=== PATIENT | female | born 1945 | race Caucasian/White ===

== ENCOUNTER 2018-05-16 14:11 | Emergency (ER) | payer MEDICARE, OTHER ==
--- NOTE | 2018-05-16 14:38 | PDOC ---
Rapid Medical Evaluation Time Seen by Provider: 05/16/18 14:34 Medical Evaluation: Allergies Allergy/AdvReac Type Severity Reaction Status Date / Time No Known Allergies Allergy Verified 11/26/12 18:34 05/16/18 14:35 I have performed a brief in-person evaluation of this patient The patient present with a chief complaint of: injury to head on Wednesday. Patient reported that a window fell onto her head on Wednesday, no loss of consciousness but felt lightheaded after. Today with pain in head, neck and all 4 limbs Pertinent physical exam findings: Heent: no hematoma felt, supple neck even and unlabored breathing I have ordered the following: head and neck ct The patient will proceed to the ED for further evaluation. Discharge Disposition - Diagnosis Headache - Referrals - Patient Instructions - Post Discharge Activity
[2018-05-16 14:40] VITALS: BP 164/73; PULSE 67; TEMP 98.1; BMI 27.3
--- NOTE | 2018-05-16 16:38 | PDOC ---
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 Patient reports she was cleaning a window and the corner of the window hit the top of the head weeks ago. Patient report no loss of consciousness. Reported she has not been feeling pain on to 2 days ago when she started having posterior neck pain with headache and tingling sensation in bilateral upper arms. Denies arm weakness. Denies chest pain, shortness of breath, blurry vision, nausea or vomiting. Denies any other symptoms Timing/Duration: reports: 1 week Past History - Past Medical History Allergies/Adverse Reactions: Allergies Allergy/AdvReac Type Severity Reaction Status Date / Time No Known Allergies Allergy Verified 05/16/18 14:41 Home Medications: Ambulatory Orders Aspirin 81 mg PO DAILY 11/26/12 Esomeprazole Mag Trihydrate [Nexium] 40 mg PO DAILY 11/26/12 Levothyroxine [Synthroid] 37.5 mcg PO DAILY 11/26/12 Valsartan [Diovan] 160 mg PO DAILY 11/26/12 Methocarbamol [Robaxin -] 500 mg PO BID PRN #14 tablet 05/16/18 Naproxen 500 mg PO BID PRN #20 tablet 05/16/18 Cardiac Disorders: Yes GI Disorders: Yes (HERNIA) HTN: Yes Thyroid Disease: Yes - Suicide/Smoking/Psychosocial Hx Smoking Status: No Smoking History: Never smoked Have you smoked in the past 12 months: No Number of Cigarettes Smoked Daily: 0 Information on smoking cessation initiated: No Hx Alcohol Use: No Drug/Substance Use Hx: No Neuro Specific PMHX - Complaint Specific PMHX Glaucoma: No Herniated Disk: No Laminectomy: No Migraine: No Multiple Sclerosis: No Neuropathy: No TIA: No Review of Systems - Review of Systems Able to Perform ROS?: Yes Is the patient limited Panamanian proficient: No Constitutional: No: Weakness HEENTM: No: Symptoms Reported, See HPI, Eye Pain, Blurred Vision, Tearing, Recent change in vision, Double Vision, Cataracts, Ear Pain, Ocular Prothesis, Ear Discharge, Nose Pain, Nose Congestion, Tinnitus, Nose Bleeding, Hearing Loss , Throat Pain, Throat Swelling, Mouth Pain, Dental Problems, Difficulty Swallowing, Mouth Swelling, Other Respiratory: No: Symptoms reported, See HPI, Cough, Orthopnea, Shortness of Breath, SOB with Exertion, SOB at Rest, Stridor, Wheezing, Productive cough, Hemoptysis, Other Cardiac (ROS): No: Symptoms Reported, See HPI, Chest Pain, Edema, Irregular Heart Rate, Lightheadedness, Palpitations, Syncope, Chest Tightness, Other ABD/GI: No: Nausea, Vomiting Musculoskeletal: Yes: See HPI, Neck Pain (posterior neck pains) Neurological: Yes: Headache (mild), Tingling (b/l upper arms). No: Numbness, Paresthesia, Dizziness All Other Systems: Reviewed and Negative *Physical Exam - Vital Signs Last Vital Signs Temp Pulse Resp BP Pulse Ox 98.1 F 67 18 164/73 96 05/16/18 14:33 05/16/18 14:33 05/16/18 14:33 05/16/18 14:33 05/16/18 14:33 - Physical Exam Comments: 05/16/18 17:46 GENERAL: Well developed, well nourished. Awake and alert. No acute distress. HEENT: Normocephalic, atraumatic. PERRLA, EOMI. No conjunctival pallor. Sclera are non- icteric. Moist mucous membranes. Oropharynx is clear. NECK: Supple. Full ROM. No JVD. Carotid pulses 2+ and symmetric, without bruits. No thyromegaly. No lymphadenopathy. CARDIOVASCULAR: Regular rate and rhythm. No murmurs, rubs, or gallops. Distal pulses are 2+ and symmetric. PULMONARY: No evidence of respiratory distress. Lungs clear to auscultation bilaterally. No wheezing, rales or rhonchi. ABDOMINAL: Soft. Non-tender. Non-distended. No rebound or guarding. No organomegaly. Normoactive bowel sounds. MUSCULOSKELETAL Normal range of motion at all joints. No bony deformities or tenderness. 5 out of 5 muscle strength bilateral upper extremity. SKIN: Warm and dry. Normal capillary refill. No rashes. No jaundice. NEUROLOGICAL: Alert, awake, appropriate. Cranial nerves 2-12 intact. Normal speech. Toes are down-going bilaterally. Gait is normal without ataxia. PSYCHIATRIC: Cooperative. Good eye contact. Appropriate mood and affect. General Appearance: Yes: Nourished, Appropriately Dressed. No: Apparent Distress Medical Decision Making - Medical Decision Making 05/16/18 17:47 Patient present with complaining of posterior neck pain, headache with tingling sensation bilateral upper arms for 2 days status post being hit in the head with a window frame week ago. Clinical exam unremarkable with normal neuro exam. 5 out of 5 muscle strength of bilateral upper extremity. Mild tenderness to posterior bilateral paracervical muscle with free range of motion of neck. Head CT without contrast shows no acute intracranial bleeding or pathology. CT shows straightening of the spine otherwise with no acute pathology. Symptoms likely of neck spasm with radiculopathy. Patient is stable for discharge on NSAIDs and muscle relaxer with orthopedist follow-up. *DC/Admit/Observation/Transfer Diagnosis at time of Disposition: Neck muscle spasm Headache Qualifiers: Headache type: tension-type Headache chronicity pattern: episodic headache Intractability: not intractable Qualified Code(s): G44.219 - Episodic tension- type headache, not intractable Contusion of head Qualifiers: Encounter type: initial encounter Contusion of head detail: scalp Qualified Code(s): S00.03XA - Contusion of scalp, initial encounter - Discharge Dispostion Disposition: HOME Condition at time of disposition: Stable Decision to Admit order: No - Prescriptions Prescriptions: Methocarbamol [Robaxin -] 500 mg PO BID PRN #14 tablet PRN Reason: neck pain Naproxen 500 mg PO BID PRN #20 tablet PRN Reason: neck pain - Referrals Referrals: Evelia Mike [Primary Care Provider] - - Patient Instructions Printed Discharge Instructions: Spasticity Additional Instructions: Your head CATs scan was normal. Your neck CATS scan shows neck spasm. take medications as prescribed for neck spasm and pain. Apply heat to neck 2-3 times/ day as needed for hernandez pain. Follow-up with referred ENT for feeling of foreign material in throat Print Language: SLOVENIAN - Post Discharge Activity
[2018-05-16] MEDS ORDERED: IBUPROFEN 600 MG TABLET (FP) PO ONE ×2 (17:11→17:17)
== END 2018-05-16 17:18 | disposition home or self-care (01) ==
LOC: JER 14:11 → JERFT 14:11
DX: S00.83XA Contusion of other part of head, initial encounter (principal); G44.219 Episodic tension-type headache, not intractable; M62.838 Other muscle spasm; W20.8XXA Other cause of strike by thrown, projected or falling object, initial encounter; Y93.E9 Activity, other interior property and clothing maintenance; Y92.038 Other place in apartment as the place of occurrence of the external cause; Y99.8 Other external cause status; I10 Essential (primary) hypertension; E03.9 Hypothyroidism, unspecified
CPT/HCPCS: 70450-TC; 72125-TC; 99281-25

== ENCOUNTER 2019-01-04 18:49 | Emergency (ER) | payer MEDICARE, OTHER ==
--- NOTE | 2019-01-04 18:53 | PDOC ---
Rapid Medical Evaluation Chief Complaint: Injury Time Seen by Provider: 01/04/19 18:51 Medical Evaluation: Allergies Allergy/AdvReac Type Severity Reaction Status Date / Time No Known Allergies Allergy Verified 05/16/18 14:41 01/04/19 18:52 Pt with complaints of: slipped and fell in shower hitting rt side of head on toilet, no LOC, on ASA, now with nausea and headache to forehead Pt on brief exam: vss, no open skin, pt ordered for: head ct pt to proceed to the ED Discharge Disposition - Diagnosis Head injury - Referrals - Patient Instructions - Post Discharge Activity
[2019-01-04 18:55] VITALS: BMI 33.2
--- NOTE | 2019-01-04 19:58 | PDOC ---
Attending Attestation - Resident Resident Name: Werner Cabrera - ED Attending Attestation I have performed the following: I have examined & evaluated the patient, The case was reviewed & discussed with the resident, I agree w/resident's findings & plan - HPI HPI: 01/04/19 22:23 see resident hpi - Physicial Exam PE: 01/04/19 22:23 agree with resident exam - Medical Decision Making 01/04/19 22:23 73-year-old female status post mechanical fall with injury to the occipital region CT scan of the head and cervical spine showed no acute traumatic injury Will DC with head injury instructions, patient advised to stay with a family member this evening and be cautious when ambulating as she can have resulting dizziness due to concussive injury
[2019-01-04] MEDS ORDERED: ACETAMINOPHEN 325 MG TABLET (FP) PO ONE (20:38)
[2019-01-04] MEDS ORDERED: IBUPROFEN 400 MG TABLET (FP) PO ONE ×2 (20:45→20:46)
[2019-01-04] MEDS ORDERED: ACETAMINOPHEN 325 MG TABLET (FP) ONE (20:46)
--- NOTE | 2019-01-04 21:12 | PDOC ---
History of Present Illness - General Chief Complaint: Injury Stated Complaint: FALL/HEAD INJURY Time Seen by Provider: 01/04/19 18:51 History Source: Patient Exam Limitations: No Limitations, Language Barrier - History of Present Illness Initial Comments: Teresa Rosario is a 73 yo F w a pmh of hypothyroidism, depression, and HTN who presents to the [facility] er after she fell down and hit her head. The patient presents with her daughter who helps with the history. The patient states as she was getting out of her shower her foot slipped on the wet surface , and she fell and hit her head on the toilet. 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 The patient takes a baby 81 mg aspirin daily but no other blood thinners. Here in the ER the patient endorses a mild headache and pain near where she hit her head but denies any other symptoms at the present time. She states she originally had nausea without emesis but currently the patient does not feel nauseous. The patient denies having experienced any chest pain, SOB, difficulty breathing , LOC, vomiting, blurry vision, back pain, dysuria, frequency, urgency, or recent fevers. PCP: Evelia Mike PSH: None reported Social Hx: Denies smoking, drinking, or other substance usage Allergies: NKA, NKDA Past History - Past Medical History Allergies/Adverse Reactions: Allergies Allergy/AdvReac Type Severity Reaction Status Date / Time No Known Allergies Allergy Verified 01/04/19 18:53 Home Medications: Ambulatory Orders Aspirin 81 mg PO DAILY 11/26/12 Esomeprazole Mag Trihydrate [Nexium] 40 mg PO DAILY 11/26/12 Levothyroxine [Synthroid] 37.5 mcg PO DAILY 11/26/12 Valsartan [Diovan] 160 mg PO DAILY 11/26/12 Methocarbamol [Robaxin -] 500 mg PO BID PRN #14 tablet 05/16/18 Naproxen 500 mg PO BID PRN #20 tablet 05/16/18 Cardiac Disorders: Yes COPD: No GI Disorders: Yes (HERNIA) HTN: Yes Thyroid Disease: Yes - Psycho Social/Smoking Cessation Hx Smoking Status: No Smoking History: Never smoked Have you smoked in the past 12 months: No Number of Cigarettes Smoked Daily: 0 Information on smoking cessation initiated: No Hx Alcohol Use: No Drug/Substance Use Hx: No Review of Systems - Review of Systems Able to Perform ROS?: Yes Comments:: CONSTITUTIONAL: Absent: fever, no chills, no fatigue EYES: Absent: visual changes ENT: Absent: ear pain, no sore throat CARDIOVASCULAR: Absent: chest pain, no palpitations RESPIRATORY: Absent: cough, no SOB GI: Present: Nausea Absent: abdominal pain, no vomiting, no constipation, no diarrhea GENITOURINARY: Absent: dysuria, no frequency, no hematuria MUSKULOSKELETAL: Absent: back pain, no arthralgia, no myalgia SKIN: Absent: rash NEURO: Present: headache *Physical Exam - Vital Signs Last Vital Signs Temp Pulse Resp BP Pulse Ox 98.2 F 87 18 152/73 98 01/04/19 18:51 01/04/19 18:51 01/04/19 18:51 01/04/19 18:51 01/04/19 18:51 - Physical Exam Comments: GENERAL: Patient is awake, alert and in no acute distress. Speech is clear and appropriate. HEAD: Atraumatic and nontender. HEENT: Pupils are equal round and reactive to light, extraocular movements are intact. The tympanic membranes are clear, no hemotympanum. No facial deformity. No facial bone tenderness or step-off. No nasal septal hematoma. The oropharynx is clear. NECK: The trachea is midline, there is no stridor. There is no midline cervical spine tenderness, full range of motion of neck. CHEST: Non-tender, no ecchymosis or abrasions. Equal chest wall expansion bilaterally. No flail segments. Lungs are clear to auscultation bilaterally. CARDIOVASCULAR: S1-S2, regular rate and rhythm. No murmurs or rubs. ABDOMEN: Soft, nontender, nondistended. Bowel sounds are normoactive. There is no abdominal or flank ecchymosis. BACK/PELVIS: There is no midline thoracic or lumbosacral spine tenderness or step-off. Pelvis is stable and nontender. EXTREMITIES: There is no extremity deformity or joint swelling. No focal bony tenderness throughout. 2+ distal pulses throughout. NEURO: Alert and oriented x3. Cranial nerves II through XII are intact. 5 out of 5 motor strength x4 extremities. No gross sensory deficits. [id number] is intact. No pronator drift. Gait is stable. SKIN: No abrasions, hematomas, lacerations. PSYCH: Affect is appropriate ED Treatment Course - Medications Given in the ED: ED Medications Discontinued Medications Generic Name Dose Route Start Last Admin Trade Name Kizzy PRN Reason Stop Dose Admin Acetaminophen 975 mg 01/04/19 20:38 01/04/19 20:58 Tylenol - PO 01/04/19 20:39 975 mg ONCE ONE Administration Ibuprofen 400 mg 01/04/19 20:45 01/04/19 20:58 Motrin - PO 01/04/19 20:46 400 mg ONCE ONE Administration Medical Decision Making - Medical Decision Making Teresa Rosario is a 73 yo F w a pmh of hypothyroidism, depression, and HTN who presents to the [facility] er after she fell down and hit her head. The patient presents with her daughter who helps with the history. The patient states as she was getting out of her shower her foot slipped on the wet surface , and she fell and hit her head on the toilet. 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 The patient takes a baby 81 mg aspirin daily but no other blood thinners. Here in the ER the patient endorses a mild headache and pain near where she hit her head but denies any other symptoms at the present time. She states she originally had nausea without emesis but currently the patient does not feel nauseous. The patient denies having experienced any chest pain, SOB, difficulty breathing , LOC, vomiting, blurry vision, back pain, dysuria, frequency, urgency, or recent fevers. Vital Signs Temp Pulse Resp BP Pulse Ox 98.2 F 87 18 152/73 98 01/04/19 18:51 01/04/19 18:51 01/04/19 18:51 01/04/19 18:51 01/04/19 18:51 MDM: Patient presents after mechanical fall where she hit her head. CT ordered from [facility] was negative. Patient endorses analgesic relief after tylenol. Will obtain cervical CT and if negative will DC. Plan: Head CT, cervical CT, EKG, analgesia, DC EKG: NS rate of 81, narrow complexes, normal axis, no hypertrophy, Nonspecific ST abnormality, No abnormal TWI's, QTc [address]: No acute pathology Cervical CT: No acute pathology Dispo: Home with PCP fu - Patient will be discharged when Cervical CT is read. Discharge - Discharge Information Problems reviewed: Yes Clinical Impression/Diagnosis: Head injury Qualifiers: Encounter type: initial encounter Qualified Code(s): S09.90XA - Unspecified injury of head, initial encounter Concussion Qualifiers: Encounter type: initial encounter Loss of consciousness presence/duration: without LOC Qualified Code(s): S06.0X0A - Concussion without loss of consciousness, initial encounter Condition: Stable Disposition: HOME - Admission No - Follow up/Referral Referrals: [facility] [place] [Provider Group] - Patient Discharge Instructions Patient Printed Discharge Instructions: How to Prevent Falls Additional Instructions: You came into the ER after you fell and hit your head. We did a cat scan which showed no brain bleed or fracture in your neck. Please take tylenol and motrin as needed for pain control. Please make sure to follow up with your primary care doctor in the next 3 to 5 days to make sure you are feeling well and getting better. Come back to the ER immediately if you feel nauseous, your pain gets worse, or you have any other new or worsening concerns. Thank you for coming to the [facility] ER. We hope you feel better soon! Print Language: KITTITIAN - Post Discharge Activity
[2019-01-04 22:57] VITALS: BP 146/78; PULSE 88; TEMP 98.5
--- NOTE | 2019-01-05 12:39 | EKG ---
Test Reason : Blood Pressure : / mmHG Vent. Rate : 081 BPM Atrial Rate : 081 BPM P-R Int : 178 ms QRS Dur : 090 ms QT Int : 402 ms P-R-T Axes : 052 023 003 degrees QTc Int : 466 ms NORMAL SINUS RHYTHM NONSPECIFIC ST ABNORMALITY ABNORMAL ECG WHEN COMPARED WITH ECG OF 26-NOV-2012 18:51, NO SIGNIFICANT CHANGE WAS FOUND Confirmed by JOSUE IGNACIO MD ([id number]) on 01/05/2019 12:38:44 PM Referred By: Confirmed By:JOSUE IGNACIO MD
== END 2019-01-04 22:56 | disposition home or self-care (01) ==
LOC: JER 18:49
DX: S06.0X0A Concussion without loss of consciousness, initial encounter (principal); S09.90XA Unspecified injury of head, initial encounter; W18.39XA Other fall on same level, initial encounter; Y93.89 Activity, other specified; Y92.89 Other specified places as the place of occurrence of the external cause; E03.9 Hypothyroidism, unspecified; F32.9 Major depressive disorder, single episode, unspecified; I10 Essential (primary) hypertension; I51.9 Heart disease, unspecified; K46.9 Unspecified abdominal hernia without obstruction or gangrene
CPT/HCPCS: 70450-TC; 72125-TC; 93005; 93010; 99282-25

== ENCOUNTER 2019-02-13 16:18 | Emergency (ER) | payer MEDICARE, OTHER ==
--- NOTE | 2019-02-13 16:27 | PDOC ---
Rapid Medical Evaluation Time Seen by Provider: 02/13/19 16:22 Medical Evaluation: Allergies Allergy/AdvReac Type Severity Reaction Status Date / Time No Known Allergies Allergy Verified 01/04/19 18:53 02/13/19 16:22 CC: Atraumatic right sided facial swelling x2 days PE: Swelling to right zygoma and right mandible. Right zygoma TTP. No deformity or crepitus present. No erythema present. Orders: CT facial bones Patient will proceed to ED for further evaluation. Discharge Disposition - Diagnosis Right facial swelling - Referrals Referrals: Evelia Mike [Primary Care Provider] - - Patient Instructions - Post Discharge Activity
[2019-02-13 16:28] VITALS: BP 152/77; PULSE 78; TEMP 97.9; BMI 35.6
[2019-02-13] MEDS ORDERED: IBUPROFEN 400 MG TABLET (FP) PO ONE ×2 (16:57→17:07)
[2019-02-13] MEDS ORDERED: ACETAMINOPHEN 325 MG TABLET (FP) ONE (17:10)
[2019-02-13] MEDS ORDERED: ACETAMINOPHEN 325 MG TABLET (FP) PO ONE (17:16)
--- NOTE | 2019-02-13 17:28 | PDOC ---
Documentation entered by Ruchi Cox SCRIBE, acting as scribe for Duncan Uriostegui MD. Duncan Uriostegui MD: This documentation has been prepared by the Kenny ojeda Nirvannie, SCRIBE, under my direction and personally reviewed by me in its entirety. I confirm that the documentation accurately reflects all work, treatment, procedures, and medical decision making performed by me. Attending Attestation - Resident Resident Name: Jose Palmer - ED Attending Attestation I have performed the following: I have examined & evaluated the patient, The case was reviewed & discussed with the resident, I agree w/resident's findings & plan, Exceptions are as noted - HPI HPI: 02/13/19 17:37 CC: Facial swelling. HPI: The patient is a 73 year old female, with a significant past medical history of hypothyroidism, depression, and HTN, who presents to the emergency department with 2 days of atraumatic facial swelling with temperature sensitivity to the right upper teeth. She denies any recent trauma to the mouth. Allergies: NKDA Past surgical history: None reported. Social history: Nonsmoker. Denies EtOH use and recreational drug use. Primary Care Physician: Evelia Chanel - Physicial Exam PE: 02/14/19 18:36 Vitals: Triage Vital signs reviewed his prior and still here General Appearance: No acute distress, well nourished well developed, Throat: Tenderness palpation over the right upper dental line no stones palpated in the cheek no trismus no fluctuant abscess noted Head: Atraumatic, Psych: Normal mood, normal affect - Medical Decision Making 02/14/19 18:37 History and examination consistent with infected tooth we will start patient on Augmentin patient struck to follow-up with dentistry tomorrow already on pain medication Findings, the need for follow-up and strict return instructions discussed with patient.
--- NOTE | 2019-02-13 17:41 | PDOC ---
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 Experiencing dental pain with hot and cold liquids with teeth numbers 3, 4, and 5. Has an old crown on number 3. Has not been able to schedule an appointment with her dentist. Denies fevers, chills, or difficulty swallowing. Used Naproxen for pain relief. Medical Hx: - Hypothyroidism, - Depression - HTN Review of Systems: 10 point review of systems completed. All systems negative except as noted above. Physical Examination: Vital signs and nursing notes reviewed. Constitutional- Well-developed, well-nourished adult female in no acute distress or obvious discomfort. Found sitting upright on edge of hospital hallway bed. Answered all questions appropriately and completely. Head- Normocephalic. No obvious external signs of trauma. Face- Swelling to right cheek. No flatulence or induration. No glandular swelling. Throat- Teeth numbers 3, 4, 5 painful to direct percussion and palpation of surrounding gum. Tooth number 4 appears eroded to the gum line. Multiple diffuse dental caries. No submandibular swelling or erythema to posterior oropharynx. Neck- Supple, trachea is midline. Cardiovascular / Chest- Regular rate. Respiratory- Breathing unlabored. Equal chest rise and fall. Neuro- Alert and oriented x4. Moving all four extremities spontaneously. Skin- Warm, dry, and intact. Psych- Affect- appropriate. Mood- normal. Speech was non-labored, non- pressured. MDM: 73 y/o female presenting with atraumatic pain and swelling to right side of face with associated dental pain. Afebrile. Vitals unremarkable for hypotension or tachycardia. Physical exam as described above. Suspect likely dental infection. Low suspicion for drainable abscess or serious systemic infection. Will prescribe short course of Augmentin for abx coverage. Pt referred to [facility] or [facility] Adult dental clinics for tomorrow morning. Jose Palmer M.D., PGY2 Emergency Medicine Resident Past History - Past Medical History Allergies/Adverse Reactions: Allergies Allergy/AdvReac Type Severity Reaction Status Date / Time No Known Allergies Allergy Verified 02/13/19 16:28 Home Medications: Ambulatory Orders Aspirin 81 mg PO DAILY 11/26/12 Esomeprazole Mag Trihydrate [Nexium] 40 mg PO DAILY 11/26/12 Levothyroxine [Synthroid] 37.5 mcg PO DAILY 11/26/12 Valsartan [Diovan] 160 mg PO DAILY 11/26/12 Naproxen 500 mg PO BID PRN #20 tablet 05/16/18 Amoxicillin/Potassium Clav [Augmentin 875-125 Tablet] 1 each PO BID 5 Days #10 tablet 02/13/19 Cardiac Disorders: Yes COPD: No GI Disorders: Yes (HERNIA) HTN: Yes Thyroid Disease: Yes - Psycho Social/Smoking Cessation Hx Smoking Status: No Smoking History: Never smoked Have you smoked in the past 12 months: No Number of Cigarettes Smoked Daily: 0 Hx Alcohol Use: No Drug/Substance Use Hx: No *Physical Exam - Vital Signs Last Vital Signs Temp Pulse Resp BP Pulse Ox 97.9 F 78 16 152/77 98 02/13/19 16:25 02/13/19 16:25 02/13/19 16:25 02/13/19 16:25 02/13/19 16:25 ED Treatment Course - Medications Given in the ED: ED Medications Discontinued Medications Generic Name Dose Route Start Last Admin Trade Name Kizzy PRN Reason Stop Dose Admin Acetaminophen 650 mg 02/13/19 17:16 02/13/19 17:17 Tylenol - PO 02/13/19 17:17 650 mg ONCE ONE Administration Ibuprofen 400 mg 02/13/19 16:57 02/13/19 17:17 Motrin - PO 02/13/19 16:58 Not Given ONCE ONE Discharge - Discharge Information Problems reviewed: Yes Clinical Impression/Diagnosis: Right facial swelling, Pain, dental Condition: Good Disposition: HOME - Admission No - Additional Discharge Information Prescriptions: Amoxicillin/Potassium Clav [Augmentin 875-125 Tablet] 1 each PO BID 5 Days #10 tablet - Follow up/Referral Referrals: Evelia Mike [Primary Care Provider] - - Patient Discharge Instructions Patient Printed Discharge Instructions: DI for Tooth Abscess Additional Instructions: Lo vieron hoy por dolor e hinchazn en el lado derecho de mercedes susan. El dolor es probable de wes infeccin dental. Necesitas que te breann un dentista. Debera ir a wes de las siguientes clnicas dentales maana por la maana: 1) [facility] [address], [place] [address] [address], 3er piso 2) [place] [address] Edificio principal, debora piso Ambas clnicas solo mariela las primeras 15 personas por da. Planifique llegar alrededor de las 8 a.m. Envi wes receta para un antibitico llamado Augmentin a mercedes farmacia. Tmelo zuly se indica en el prospecto. No exceda la dosis recomendada. Contine tomando Naproxeno para el dolor. Vaya al departamento de emergencias ms cercano para detectar sntomas nuevos o que empeoren. You were seen today for pain and swelling on the right side of your face. The pain is likely from a dental infection. You need to be seen by a dentist. You should go to one of the following dental clinics tomorrow mornin) [facility] [address] [place] [address] [address], 3rd Floor 2) [facility] [address] [place] [address] Main Building, 2nd Floor Both clinics only take the first 15 people per day. Plan to arrive around 8am. I have sent a prescription for an antibiotic called Augmentin to your pharmacy. Take as directed on the package insert. Do not exceed the recommended dosage. Continue to take Naproxen for pain. Go to the nearest emergency department for new or worsening symptoms. Print Language: MACANESE - Post Discharge Activity
== END 2019-02-13 18:06 | disposition home or self-care (01) ==
LOC: JER 16:18
DX: K08.89 Other specified disorders of teeth and supporting structures (principal); I10 Essential (primary) hypertension; E03.9 Hypothyroidism, unspecified
CPT/HCPCS: 99283-25

== ENCOUNTER 2023-08-21 19:34 | Inpatient (IN) | payer OTHER ==
[2023-08-21] MEDS ORDERED: MORPHINE SULFATE 2 MG/ML SYRINGE ONE ×2 (20:50→21:04)
[2023-08-21 21:09] LABS: BASO % 0.6 % (0-2.0); HEMATOCRIT 39.8 % (32.4-45.2); HEMOGLOBIN 13.3 GM/dL (10.7-15.3); LYMPH % 16.6 % (8-40); MCH 31.2 pg (25.7-33.7); MCHC 33.5 g/dl (32.0-36.0); MEAN CELL VOLUME 93.3 fl (80-96); MEAN PLT VOLUME 7.9 fl (7.5-11.1); MONO % 6.9 % (3.8-10.2); NEUT % 74.9 % (42.8-82.8); PLATELET COUNT 321 10^3/uL (134-434); RBC 4.26 M/mm3 (3.60-5.2); RDW 14.6 % (11.6-15.6); WHITE BLOOD COUNT 9.7 K/mm3 (4.0-10.0)
[2023-08-21] MEDS: morphine CARPU-JECT 2 MG/1 ML DISP.SYRIN IVPUSH ONE (21:10)
[2023-08-21 21:26] LABS: POTASSIUM 3.9 mmol/L (3.5-5.1)
[2023-08-21 21:28] LABS: CALCIUM 8.8 mg/dL (8.5-10.1)
[2023-08-21 21:30] LABS: ALBUMIN 3.5 g/dl (3.4-5.0); BLOOD UREA NITROGEN 17.7 mg/dL (7-18)
[2023-08-21 21:33] LABS: BILIRUBIN,TOTAL 0.5 mg/dL (0.2-1); CREATININE 0.6 mg/dL (0.55-1.3)
[2023-08-21] MEDS ORDERED: CLINDAMYCIN 600MG PREMIX IVPB 600 MG/50 ML BAG IVPB ONE (21:42)
[2023-08-21] MEDS: CLINDAMYCIN 600MG PREMIX IVPB 600 MG/50 ML BAG IVPB ONE (22:30)
[2023-08-21] MEDS ORDERED: KETOROLAC TROMETHAMINE 15 MG/ML VIAL ONE (22:56)
[2023-08-21] MEDS: KETOROLAC TROMETHAMINE 30 MG/1 ML VIAL IVPUSH ONE (23:04)
[2023-08-22] MEDS: ACETAMINOPHEN 325 MG TABLET (FP) PO PRN (02:50)
[2023-08-22] MEDS ORDERED: MORPHINE SULFATE 2 MG/ML SYRINGE IVPUSH PRN (05:58)
[2023-08-22 07:59] LABS: HEMATOCRIT 38.5 % (32.4-45.2); HEMOGLOBIN 12.9 GM/dL (10.7-15.3); MCH 31.6 pg (25.7-33.7); MCHC 33.7 g/dl (32.0-36.0); MEAN CELL VOLUME 93.8 fl (80-96); MEAN PLT VOLUME 8.1 fl (7.5-11.1); PLATELET COUNT 310 10^3/uL (134-434); RDW 14.7 % (11.6-15.6)
[2023-08-22 08:16] LABS: POTASSIUM 3.6 mmol/L (3.5-5.1)
[2023-08-22 08:18] VITALS: BMI 40.9
[2023-08-22 08:21] LABS: BLOOD UREA NITROGEN 16.1 mg/dL (7-18); CALCIUM 8.6 mg/dL (8.5-10.1); MAGNESIUM 2.5 mg/dL (1.8-2.4)
[2023-08-22 08:24] LABS: CREATININE 0.6 mg/dL (0.55-1.3)
[2023-08-22] MEDS: CLINDAMYCIN 600MG PREMIX IVPB 600 MG/50 ML BAG IVPB SCH (09:16)
[2023-08-22] MEDS: VALSARTAN 160 MG TABLET PO SCH (09:28)
[2023-08-22] MEDS: ASPIRIN 81 MG CHEWABLE TABLETS PO SCH (09:29)
[2023-08-22] MEDS: ENOXAPARIN NA (PORCINE) 40 MG/0.4 ML DISP.SYRIN SQ SCH (09:29)
[2023-08-22] MEDS: LEVOTHYROXINE NA 25 MCG TABLET (FP) PO SCH (10:58)
[2023-08-22] MEDS: ACETAMINOPHEN 1000 MG/100 ML BAG IVPB ONE ×2 (12:00→22:17)
[2023-08-22] MEDS: CEFTRIAXONE 1 GM in DEXTROSE 5%-WATER - 50 ML IVPB SCH (12:02)
[2023-08-22] MEDS: hydrOXYzine PAMOATE 25 MG CAPSULE (FP) PO ONE (22:16)
[2023-08-23] MEDS: AMPICILLIN NA/SULBACTAM NA 3 GM in SODIUM CHLORIDE 100 ML IVPB SCH (11:47)
[2023-08-23] MEDS: VANCOMYCIN/WATER 1250 MG 1,250 MG/250 ML BAG IVPB SCH (11:47)
[2023-08-23] MEDS: hydrOXYzine PAMOATE 25 MG CAPSULE (FP) PO ONE (23:43)
[2023-08-24 09:42] LABS: INR 0.93 (0.83-1.09); PROTHROMBIN TIME (PATIENT) 10.7 SEC (9.7-13.0)
[2023-08-24 09:44] LABS: ACTIVATED PTT 30.5 SECONDS (25.2-36.5)
[2023-08-24 09:45] LABS: BASO % 0.8 % (0-2.0); EOS % 4.8 % (0-4.5); HEMOGLOBIN 12.5 GM/dL (10.7-15.3); LYMPH % 19.3 % (8-40); MCH 31.7 pg (25.7-33.7); MCHC 33.7 g/dl (32.0-36.0); MEAN CELL VOLUME 94.2 fl (80-96); MEAN PLT VOLUME 8.2 fl (7.5-11.1); NEUT % 67.1 % (42.8-82.8); PLATELET COUNT 309 10^3/uL (134-434); RBC 3.93 M/mm3 (3.60-5.2); RDW 14.9 % (11.6-15.6); WHITE BLOOD COUNT 6.5 K/mm3 (4.0-10.0)
[2023-08-24 10:01] LABS: POTASSIUM 3.9 mmol/L (3.5-5.1)
[2023-08-24] MEDS: PANTOPRAZOLE 40 MG TABLET PO PRN (10:01)
[2023-08-24] MEDS: ACETAMINOPHEN 325 MG TABLET (FP) PO SCH (10:01)
[2023-08-24 10:18] LABS: BLOOD UREA NITROGEN 12.7 mg/dL (7-18); CALCIUM 8.1 mg/dL (8.5-10.1); MAGNESIUM 2.4 mg/dL (1.8-2.4)
[2023-08-24 10:22] LABS: BILIRUBIN,TOTAL 0.4 mg/dL (0.2-1); CREATININE 0.5 mg/dL (0.55-1.3); PHOSPHOROUS 3.5 mg/dL (2.5-4.9)
[2023-08-24 10:23] LABS: TOT PROT 6.1 g/dl (6.4-8.2)
[2023-08-24] MEDS: FAMOTIDINE 20 MG TABLET PO ONE (14:36)
[2023-08-25 08:23] LABS: BASO % 0.7 % (0-2.0); EOS % 6.1 % (0-4.5); HEMATOCRIT 38.1 % (32.4-45.2); LYMPH % 23.9 % (8-40); MCHC 34.1 g/dl (32.0-36.0); MEAN CELL VOLUME 93.8 fl (80-96); MONO % 6.9 % (3.8-10.2); NEUT % 62.4 % (42.8-82.8); PLATELET COUNT 316 10^3/uL (134-434); RBC 4.06 M/mm3 (3.60-5.2); RDW 14.6 % (11.6-15.6); WHITE BLOOD COUNT 5.9 K/mm3 (4.0-10.0)
[2023-08-25 08:43] LABS: POTASSIUM 4.1 mmol/L (3.5-5.1)
[2023-08-25 08:46] LABS: CALCIUM 8.6 mg/dL (8.5-10.1)
[2023-08-25 08:47] LABS: BLOOD UREA NITROGEN 9.1 mg/dL (7-18)
[2023-08-25 08:51] LABS: CREATININE 0.5 mg/dL (0.55-1.3)
[2023-08-25] MEDS: PANTOPRAZOLE 40 MG TABLET PO SCH (10:27)
[2023-08-25] MEDS: CHLORHEXIDINE GLUCONATE 0.12% 15ML CUP MM SCH (21:58)
[2023-08-25] MEDS: traMADol HCL 50 MG TABLET PO PRN (21:58)
[2023-08-25 22:35] VITALS: RESP 18
[2023-08-26] MEDS: AMOX TR/POT CLAV 875MG/125MG TABLETS (FP) PO SCH (08:55)
[2023-08-26 09:28] LABS: BASO % 0.7 % (0-2.0); EOS % 5.1 % (0-4.5); HEMATOCRIT 38.5 % (32.4-45.2); LYMPH % 23.1 % (8-40); MCH 31.9 pg (25.7-33.7); MCHC 33.9 g/dl (32.0-36.0); MEAN CELL VOLUME 94.2 fl (80-96); MEAN PLT VOLUME 8.1 fl (7.5-11.1); NEUT % 63.1 % (42.8-82.8); PLATELET COUNT 332 10^3/uL (134-434); RBC 4.09 M/mm3 (3.60-5.2); RDW 14.5 % (11.6-15.6); WHITE BLOOD COUNT 6.6 K/mm3 (4.0-10.0)
[2023-08-26 09:46] LABS: POTASSIUM 4.1 mmol/L (3.5-5.1)
[2023-08-26 09:49] LABS: CALCIUM 8.5 mg/dL (8.5-10.1)
[2023-08-26 09:50] LABS: BLOOD UREA NITROGEN 14.3 mg/dL (7-18)
[2023-08-26 09:53] LABS: CREATININE 0.5 mg/dL (0.55-1.3)
[2023-08-26 11:14] VITALS: BP 148/68; PULSE 72; TEMP 97.7
== END 2023-08-26 11:15 | disposition home or self-care (01) | DRG 159 ==
LOC: JER 19:34 → JERBED 08-22 00:24 → J7W 08-22 05:11 → OBSVTOIN 08-23 13:28
PROVIDERS: ADMIT Internal Medicine; ATTEND Nurse Practitioner
DX: K12.2 Cellulitis and abscess of mouth (principal); I10 Essential (primary) hypertension; E03.9 Hypothyroidism, unspecified; F32.A Depression, unspecified; K02.9 Dental caries, unspecified; M27.2 Inflammatory conditions of jaws
CPT/HCPCS: 36415; 70487-TC; 70491-TC; 71045-TC-FY; 80048; 80053; 83735; 84100; 84439; 84443; 84484; 85025; 85027; 85610; 85730; 87040; 93005; 93010; 97116-GP; 97161-GP; 99285-25; G0378; G0480; J0131; Q9967